=== PATIENT | male | born 1985 | race African-American/Black ===

== ENCOUNTER 2018-11-02 23:54 | Emergency (ER) | payer SELFPAY ==
[2018-11-03] MEDS ORDERED: Morphine 4 MG/ML VIAL ONE (00:39)
[2018-11-03] MEDS ORDERED: Ketorolac Tromethamine 30 MG/ML VIAL ONE (00:40)
[2018-11-03] MEDS ORDERED: Ondansetron PF 4 MG/2 ML Vial ONE (00:40)
--- NOTE | 2018-11-03 07:52 | RAD ---
XR Shoulder Lt 3 View STANDARD HISTORY: Left shoulder pain, injury COMPARISON: None. FINDINGS: There are degenerative changes in the acromioclavicular joint. No acute fracture or disloca tion is seen.
== END 2018-11-03 01:10 | disposition home or self-care (01) ==
LOC: ERS 23:54
DX: S43.005A Unspecified dislocation of left shoulder joint, initial encounter (principal); F17.210 Nicotine dependence, cigarettes, uncomplicated; X50.1XXA Overexertion from prolonged static or awkward postures, initial encounter; Y92.69 Other specified industrial and construction area as the place of occurrence of the external cause
CPT/HCPCS: 96374; 96375; J1885; J2270; J2405

== ENCOUNTER 2018-12-24 15:08 | Emergency (ER) | payer SELFPAY ==
[2018-12-24] MEDS ORDERED: Ibuprofen 800 MG TAB ONE (16:37)
== END 2018-12-24 16:45 | disposition home or self-care (01) ==
LOC: ERS 15:08
DX: K02.9 Dental caries, unspecified (principal); F17.210 Nicotine dependence, cigarettes, uncomplicated
CPT/HCPCS: 99282

== ENCOUNTER 2019-04-08 23:38 | Emergency (ER) | payer SELFPAY ==
[2019-04-08] MEDS ORDERED: Ibuprofen 800 MG TAB ONE (23:54)
== END 2019-04-08 23:53 | disposition home or self-care (01) ==
LOC: ERS 23:38
DX: K08.89 Other specified disorders of teeth and supporting structures (principal)
CPT/HCPCS: 99282

== ENCOUNTER 2022-06-19 19:37 | Emergency (ER) | payer SELFPAY | END 2022-06-19 20:25 | disposition home or self-care (01) | LOC: ERS 19:37 | DX: K03.81 Cracked tooth (principal); F17.210 Nicotine dependence, cigarettes, uncomplicated | CPT/HCPCS: 99282 ==

== ENCOUNTER 2022-11-30 08:26 | Emergency (ER) | payer SELFPAY ==
[2022-11-30] MEDS ORDERED: Ondansetron PF 4 MG/2 ML Vial ONE (08:53)
[2022-11-30] MEDS ORDERED: Ketorolac Tromethamine 30 MG/ML VIAL ONE (08:53)
[2022-11-30 09:27] LABS: #Eosinphils 0.1 thou/uL (0.0-0.7); #Monocytes 0.3 thou/uL (0.11-0.59); #Neutrophils 6.3 thou/uL (1.40-6.50); %Basophils 0.3 % (0.0-1.0); %Eosinophils 1.3 % (0.0-10.0); %Lymphocytes 13.5 % (21.0-51.0); %Monocytes 4.3 % (0.0-10.0); %Neutrophils 80.5 % (42.0-75.0); Mean Corpuscular HGB CONC 33.9 g/dL (32.0-36.0); Mean Corpuscular Hemoglobin 29.9 pg (27.0-31.0); Mean Platelet Volume 9.4 fL (7.4-10.4); Platelet Count 258 10x3/uL (130-400); RBC Distribution Width 12.7 % (11.5-14.5); Red Blood Cell (RBC) Count 5.02 mill/uL (4.70-6.10); White Blood Cell (WBC) Count 7.9 10x3/uL (4.8-10.8)
[2022-11-30 09:38] LABS: Bacteria/HPF None Seen HPF (None Seen); Bilirubin Negative (Negative); Blood, Urine Trace (Negative); Clarity Clear (Clear); Glucose, Urine (Dipstick) Normal (Negative); Ketone, Urine Negative (Negative); Leukocyte Negative Leu/uL (Negative); Nitrite Negative (Negative); Protein, Urine (Dipstick) 10 mg/dL (Neg-Trace); RBC/HPF 0-3 HPF (0-3); Squamous Epithelial None Seen HPF (0-3); Urobilinogen Normal mg/dL (Less than 2); WBC/HPF 0-3 HPF (0-3); pH, Urine 6.5 (5.0-9.0)
[2022-11-30 11:05] LABS: ALT (SGPT) 16 U/L (8-55); AST (SGOT) 21 U/L (5-34); Albumin 4.1 g/dL (3.5-5.0); Alkaline Phosphatase 55 U/L (40-110); Anion Gap 11 mmol/L (10-20); BUN (Urea Nitrogen) 9 mg/dL (8.9-20.6); Bilirubin, Total 0.6 mg/dL (0.2-1.2); Calc. Creatinine Clearance 0 mL/min (70-130); Calcium 9.2 mg/dL (7.8-10.44); Carbon Dioxide 23 mmol/L (22-29); Chloride 103 mmol/L (98-107); Estimated GFR 87; Globulin 3.7 g/dL (2.4-3.5); Glucose 104 mg/dL (70-105); Lipase 22 U/L (8-78); Potassium 4.9 mmol/L (3.5-5.1); Protein, Total 7.8 g/dL (6.0-8.3); Sodium 132 mmol/L (136-145)
== END 2022-11-30 11:30 | disposition home or self-care (01) ==
LOC: ERS 08:26
DX: K80.20 Calculus of gallbladder without cholecystitis without obstruction (principal); F17.210 Nicotine dependence, cigarettes, uncomplicated
CPT/HCPCS: 76705; 80053; 81003; 81015; 83690; 85025; 96374; 96375; J1885; J2405